=== PATIENT | male | born 1995 | race Two or more races ===

== ENCOUNTER 2019-01-28 16:56 | Emergency (ER) | payer OTHER ==
[~2019-01-28] VITALS: Ht 177.8 cm; Wt 103.4 kg
[2019-01-28 17:23] VITALS: Ht 177.8 cm; Wt 103.4 kg
[2019-01-28 18:57] VITALS: BP 161/83
== END 2019-01-28 18:57 | disposition home or self-care (01) ==
LOC: ED 16:56
DX: F41.9 Anxiety disorder, unspecified (principal); F12.90 Cannabis use, unspecified, uncomplicated; R00.2 Palpitations